=== PATIENT | female | born 1950 | race Caucasian/White ===

== ENCOUNTER 2016-04-29 10:45 | Inpatient (IN) | payer MEDICARE, OTHER ==
[~2016-04-29] VITALS: Ht 157.5 cm; Wt 142.0 kg
[~2016-04-29 10:45] MED LIST: LOPRESSOR 25 MG25 MG PO
[2016-04-29 11:52] LABS: HEMOGLOBIN 11.3 gm/dl (12.3-15.3); RED BLOOD COUNT 3.67 M/UL (4.00-5.10); WHITE BLOOD COUNT 6.1 K/UL (4.5-11.0)
[2016-04-29 12:24] LABS: BUN/CREATININE RATIO 19 (0-10)
[2016-04-29] MEDS ORDERED: CLARITIN10 MG PO (23:34)
[2016-04-29] MEDS ORDERED: NOVOLIN R100 UNIT/1 INJ (23:34)
[2016-04-29] MEDS ORDERED: ROBAXIN500 MG PO (23:35)
[2016-04-29] MEDS ORDERED: COZAAR25 MG PO (23:35)
[2016-04-29] MEDS ORDERED: ZOFRAN 4 MG TAB4 MG PO (23:36)
[2016-04-29] MEDS ORDERED: ZANTAC150 MG PO (23:37)
[2016-04-29] MEDS ORDERED: PRAVACHOL20 MG PO (23:37)
[2016-04-29] MEDS ORDERED: PROVENTIL HFA 61 INH INH (23:38)
[2016-04-29] MEDS ORDERED: ASPIR 8181 MG PO (23:39)
[2016-04-29] MEDS ORDERED: VITAMIN B-121000 MCG PO (23:39)
[2016-04-29] MEDS ORDERED: CALCIUM600 MG PO (23:40)
[2016-04-29] MEDS ORDERED: PRADAXA150 MG PO (23:42)
[2016-04-29] MEDS ORDERED: DILTIAZEM 12HR90 MG PO (23:42)
[2016-04-29] MEDS ORDERED: BETAPACE80 MG PO (23:43)
[2016-04-29] MEDS ORDERED: LASIX40 MG PO (23:44)
[2016-04-29] MEDS ORDERED: PROZAC20 MG PO (23:44)
[2016-04-29] MEDS ORDERED: NEURONTIN 400400 MG PO (23:44)
[2016-04-29] MEDS ORDERED: LEVEMIR100 UNIT/1 SQ (23:46)
[2016-04-29] MEDS ORDERED: HYDROCODON-ACE1 EAC2 PO (23:49)
[2016-04-30 04:04] LABS: HEMOGLOBIN 11.2 gm/dl (12.3-15.3); RED BLOOD COUNT 3.66 M/UL (4.00-5.10); WHITE BLOOD COUNT 5.8 K/UL (4.5-11.0)
[2016-04-30 04:24] LABS: BUN/CREATININE RATIO 20 (0-10)
[2016-04-30] MEDS ORDERED: RANEXA500 MG PO (17:31)
[2016-04-30] MEDS ORDERED: LOPRESSOR 50 MG50 MG PO (17:36)
== END 2016-04-30 19:00 | disposition home or self-care (01) | DRG 287 ==
LOC: ER1 10:45 → ZEROF 15:00 → PROG CARE 15:00
PROVIDERS: Physician Assistant; ADMIT Hospitalist
PROC: B2111ZZ Fluoroscopy of Multiple Coronary Arteries using Low Osmolar Contrast (ICD-10-PCS; principal; 2016-04-30)
PROC: 4A023N8 Measurement of Cardiac Sampling and Pressure, Bilateral, Percutaneous Approach (ICD-10-PCS; principal; 2016-04-30)
PROC: B315ZZZ Fluoroscopy of Bilateral Common Carotid Arteries (ICD-10-PCS; 2016-04-30)
DX: I20.0 Unstable angina (principal); I50.30 Unspecified diastolic (congestive) heart failure; Z68.43 Body mass index [BMI] 50.0-59.9, adult; E11.9 Type 2 diabetes mellitus without complications; E66.01 Morbid (severe) obesity due to excess calories; I49.5 Sick sinus syndrome; Z95.0 Presence of cardiac pacemaker; I48.0 Paroxysmal atrial fibrillation; I11.0 Hypertensive heart disease with heart failure; E78.5 Hyperlipidemia, unspecified; M79.7 Fibromyalgia; Z98.84 Bariatric surgery status; Z90.49 Acquired absence of other specified parts of digestive tract; Z90.710 Acquired absence of both cervix and uterus; Z88.5 Allergy status to narcotic agent; Z88.8 Allergy status to other drugs, medicaments and biological substances; Z79.899 Other long term (current) drug therapy; Z79.82 Long term (current) use of aspirin; Z79.4 Long term (current) use of insulin; Z82.49 Family history of ischemic heart disease and other diseases of the circulatory system; J44.9 Chronic obstructive pulmonary disease, unspecified; R94.30 Abnormal result of cardiovascular function study, unspecified
CPT/HCPCS: 36415; 71010; 80048; 80053; 80061; 82550; 82553; 82962; 83735; 83874; 83880; 84484; 85025; 85610; 85730; 93005; 96374; 99285; C1769; C1894; J0461; J0583; J1200; J1644; J2250; J3010; J7030; Q0162; Q0163; Q9963

== ENCOUNTER 2016-07-19 12:23 | Emergency (ER) | payer MEDICARE, OTHER ==
[~2016-07-19 12:23] MED LIST changes: +ASPIR 8181 MG PO; +BETAPACE80 MG PO; +CALCIUM600 MG PO; +CLARITIN10 MG PO; +COZAAR25 MG PO; +DILTIAZEM 12HR90 MG PO; +HYDROCODON-ACE1 EAC2 PO; +LASIX40 MG PO; +LEVEMIR100 UNIT/1 SQ; +LOPRESSOR 50 MG50 MG PO; +NEURONTIN 400400 MG PO; +NOVOLIN R100 UNIT/1 INJ; +PRADAXA150 MG PO; +PRAVACHOL20 MG PO; +PROVENTIL HFA 61 INH INH; +PROZAC20 MG PO; +RANEXA500 MG PO; +ROBAXIN500 MG PO; +VITAMIN B-121000 MCG PO; +ZANTAC150 MG PO; +ZOFRAN 4 MG TAB4 MG PO
[2016-07-19 14:07] LABS: HEMOGLOBIN 14.3 gm/dl (12.3-15.3); RED BLOOD COUNT 4.61 M/UL (4.00-5.10); WHITE BLOOD COUNT 8.2 K/UL (4.5-11.0)
[2016-07-19 14:34] LABS: BUN/CREATININE RATIO 21 (0-10)
== END 2016-07-19 19:22 | disposition home or self-care (01) ==
LOC: ER1 12:23 → ZEROF 18:02 → ER1 19:22
PROVIDERS: Specialist/Technologist Athletic Trainer
DX: I11.0 Hypertensive heart disease with heart failure (principal); I50.33 Acute on chronic diastolic (congestive) heart failure; M62.838 Other muscle spasm; I48.0 Paroxysmal atrial fibrillation; M79.7 Fibromyalgia; E66.01 Morbid (severe) obesity due to excess calories; E11.9 Type 2 diabetes mellitus without complications; J44.9 Chronic obstructive pulmonary disease, unspecified; Z88.5 Allergy status to narcotic agent; Z88.8 Allergy status to other drugs, medicaments and biological substances; Z79.82 Long term (current) use of aspirin; Z79.899 Other long term (current) drug therapy; Z90.49 Acquired absence of other specified parts of digestive tract; Z95.0 Presence of cardiac pacemaker
CPT/HCPCS: 36415; 71010; 80053; 82550; 82553; 83874; 83880; 84484; 85025; 85610; 85730; 93005; 93306; 96374; 99285; J1940